=== PATIENT | male | born 1990 | race African-American/Black ===

== ENCOUNTER 2022-07-29 11:11 | Emergency (ER) | payer MEDICAID ==
[~2022-07-29] VITALS: Ht 188 cm; Wt 100.0 kg
[~2022-07-29 11:11] MED LIST: BENZ1TAB79; HALO5TAB2 PO; PHEN100C4 PO; VALP250C
[2022-07-29 11:13] VITALS: BP 136/94
[2022-07-29] MEDS ORDERED: IBUPROFEN 600MG TABLET PO ONE (11:15)
== END 2022-07-29 13:26 | disposition home or self-care (01) ==
LOC: ER 11:11
DX: S80.12XA Contusion of left lower leg, initial encounter (principal); Z88.0 Allergy status to penicillin; Z86.59 Personal history of other mental and behavioral disorders; W18.30XA Fall on same level, unspecified, initial encounter; Y93.89 Activity, other specified; Y92.89 Other specified places as the place of occurrence of the external cause; Y99.8 Other external cause status
CPT/HCPCS: 99283

== ENCOUNTER 2022-08-02 02:23 | Emergency (ER) | payer MEDICAID, OTHER ==
[~2022-08-02] VITALS: Ht 198.1 cm; Wt 146.0 kg
[2022-08-02 03:38] LABS: BASOPHILS % 0.7 % (0.0-2.0); EOSINOPHILS % 2.2 % (0.0-5.0); HEMATOCRIT. 45.6 % (42.0-52.0); HEMOGLOBIN. 15.5 g/dL (14.0-18.0); LYMPHOCYTES % 23.7 % (20.0-50.0); MEAN CORPUSCULAR HEMOGLOBIN 30.9 pg (28.0-32.0); MEAN PLATELET VOLUME 8.9 fl (7.4-10.4); MONOCYTES % 8.1 % (2.0-8.0); NEUTROPHILS % 65.3 % (40.0-76.0); PLATELET 145 x1000/uL (130-400); RED CELL DISTRIBUTION WIDTH 13.5 % (11.6-14.6)
[2022-08-02 03:47] LABS: CHLORIDE 107 mEq/L (98-107)
[2022-08-02 03:56] LABS: ETHANOL BLOOD < 10 mg/dL (-10)
[2022-08-02] MEDS ORDERED: HYDR-4001 MT (06:02)
[2022-08-02 06:42] VITALS: BP 168/99
== END 2022-08-02 06:43 | disposition home or self-care (01) ==
LOC: ER 02:23
DX: K80.20 Calculus of gallbladder without cholecystitis without obstruction (principal); R56.9 Unspecified convulsions; Z88.0 Allergy status to penicillin; Z79.899 Other long term (current) drug therapy
CPT/HCPCS: 36415; 71045; 76705; 80053; 80320; 83605; 85025; 93005; 99285; G0480